=== PATIENT | male | born 1960 | race Caucasian/White ===

== ENCOUNTER 2023-04-21 07:30 | Outpatient (CLI) | payer OTHER ==
[2023-04-21 14:42] LABS: EOSINOPHILS # (AUTO) 0.1 10^3/uL (0.0-0.7); EOSINOPHILS % (AUTO) 3.1 %; HCT - HEMATOCRIT 45.7 % (42.0-52.0); HGB - HEMOGLOBIN 15.7 g/dL (14.0-18.0); LYMPHOCYTES # (AUTO) 1.2 10^3/uL (1.5-3.5); LYMPHOCYTES % (AUTO) 30.2 %; MEAN CORPUSCULAR HEMOGLOBIN 33.2 pg (27.0-31.0); MEAN CORPUSCULAR HGB CONC 34.4 g/dL (32.0-36.0); MEAN CORPUSCULAR VOLUME 96.6 fL (80.0-94.0); MEAN PLATELET VOLUME 9.7 fL (7.4-11.4); MONOCYTES # (AUTO) 0.4 10^3/uL (0.0-1.0); MONOCYTES % (AUTO) 11.1 %; NEUTROPHILS # (AUTO) 2.1 10^3/uL (1.5-6.6); NEUTROPHILS % (AUTO) 53.8 %; PLT - PLATELET COUNT 192 10^3/uL (130-450); RED BLOOD COUNT 4.73 10^6/uL (4.70-6.10); RED CELL DISTRIBUTION WIDTH 13.2 % (12.0-15.0); WHITE BLOOD COUNT 3.9 x10^3/uL (4.8-10.8)
[2023-04-21 15:22] LABS: ALBUMIN 4.6 g/dL (3.2-5.5); ALBUMIN/GLOBULIN RATIO 2.2 (1.0-2.2); ALKALINE PHOSPHATASE 53 IU/L (42-121); ALT ALANINE AMINOTRANSFERASE 30 IU/L (10-60); AST ASPARTATE AMINOTRANSFERASE 23 IU/L (10-42); BILIRUBIN,TOTAL 1.1 mg/dL (0.2-1.0); BUN - BLOOD UREA NITROGEN 13 mg/dL (6-20); CALCIUM 9.4 mg/dL (8.5-10.3); CARBON DIOXIDE - CO2 26 mmol/L (21-32); CHLORIDE 108 mmol/L (101-111); CHOL/HDL RATIO 3.1 (<5.0); CHOLESTEROL 120 mg/dL; CREATININE 0.8 mg/dL (0.6-1.3); GFR - MDRD 99 (>89); GLUCOSE 132 mg/dL (74-104); HDL CHOLESTEROL 39 mg/dL; LDL CHOLESTEROL,CALCULATED 61 mg/dL; LDL CHOLESTEROL,DIRECT 72 mg/dL (75-193); LDL/HDL RATIO 1.6 (<3.6); POTASSIUM 4.2 mmol/L (3.5-4.5); SODIUM 139 mmol/L (135-145); TOTAL PROTEIN 6.7 g/dL (6.4-8.9); TRIGLYCERIDES 99 mg/dL (48-352); VLDL CHOLESTEROL 20 mg/dL
[2023-04-21 15:45] LABS: RHEUMATOID FACTOR NEGATIVE (Negative)
[2023-04-21 20:55] LABS: ESTIMATED AVERAGE GLUCOSE 100 mg/dL (70-100); HEMOGLOBIN A1c% 5.1 % (4.27-6.07)
[2023-04-22 04:09] LABS: HCV AB Non Reactive (Non Reactive); HIV SCREEN 4TH GENERATION Non Reactive (Non Reactive); VITAMIN D 25-HYDROXY 45.9 ng/mL (30.0-100.0)
== END 2023-04-21 07:31 | disposition home or self-care (01) ==
LOC: LAB.S 07:30
PROVIDERS: ATTEND Internal Medicine
DX: Z00.00 Encounter for general adult medical examination without abnormal findings (principal); M25.549 Pain in joints of unspecified hand; I10 Essential (primary) hypertension; E78.5 Hyperlipidemia, unspecified; Z13.21 Encounter for screening for nutritional disorder; Z11.59 Encounter for screening for other viral diseases; Z11.4 Encounter for screening for human immunodeficiency virus [HIV]
CPT/HCPCS: 36415; 80053; 80061; 82306; 83036; 83721; 84443; 85025; 86200; 86430; 86803; 87389

== ENCOUNTER 2023-10-21 18:04 | Emergency (ER) | payer OTHER ==
[2023-10-21] MEDS: SODIUM CHLORIDE 0.9% 1,000 ML IV ONE (18:26)
[2023-10-21 18:38] LABS: BASOPHILS % (AUTO) 0.2 %; EOSINOPHILS # (AUTO) 0.1 10^3/uL (0.0-0.7); EOSINOPHILS % (AUTO) 0.8 %; HCT - HEMATOCRIT 49.3 % (42.0-52.0); HGB - HEMOGLOBIN 16.7 g/dL (14.0-18.0); LYMPHOCYTES # (AUTO) 0.5 10^3/uL (1.5-3.5); LYMPHOCYTES % (AUTO) 4.3 %; MEAN CORPUSCULAR HEMOGLOBIN 31.5 pg (27.0-31.0); MEAN CORPUSCULAR HGB CONC 33.9 g/dL (32.0-36.0); MEAN PLATELET VOLUME 8.8 fL (7.4-11.4); MONOCYTES % (AUTO) 7.9 %; NEUTROPHILS # (AUTO) 10.4 10^3/uL (1.5-6.6); NEUTROPHILS % (AUTO) 86.1 %; PLT - PLATELET COUNT 209 10^3/uL (130-450); RED CELL DISTRIBUTION WIDTH 13.1 % (12.0-15.0)
--- NOTE | 2023-10-21 18:39 | ED Physician Documentation ---
PD HPI HEENT - Stated complaint Stated Complaint: POST OP FEVER/NAUSEA - Chief complaint Chief Complaint: Fever - Additional information Additional information: 63-year-old male recently had bilateral inguinal hernia repair completed on October 14 with José Miguel Bain. According to the patient's surgeon reported that there was a lot of bladder involvement with bilateral inguinal hernia. After surgery patient is having a hard time voiding so a Griffin catheter was placed he had that removed yesterday he has been able to void adequately since but he started experiencing nausea today with fevers up to 103 F at home. He denies any abdominal pain no difficulty urinating but is urinating quite frequently. PD PAST MEDICAL HISTORY - Past Medical History Past Medical History: Yes Cardiovascular: Hypertension, High cholesterol Neuro: None Endocrine/Autoimmune: None GI: None : None HEENT: None Psych: None Musculoskeletal: None Derm: None - Past Surgical History Past Surgical History: Yes General: Colonoscopy - Present Medications Home Medications: Ambulatory Orders Medication Instructions Recorded Confirmed Benazepril HCl 20 mg PO DAILY 10/21/23 10/21/23 Cefuroxime Axetil [Cefuroxime] 500 mg PO BID 10 Days #20 tablet 10/21/23 Simvastatin [Zocor] 20 mg PO DAILY 10/21/23 10/21/23 Tamsulosin [Flomax] 0.4 mg PO DAILY 10/21/23 10/21/23 amLODIPine [Norvasc] 5 mg PO ONCE 10/21/23 10/21/23 - Allergies Allergies/Adverse Reactions: Allergies Allergy/AdvReac Type Severity Reaction Status Date / Time No Known Drug Allergies Allergy Verified 10/21/23 18:17 - Social History Does the pt smoke?: No Smoking Status: Never smoker Does the pt drink ETOH?: No Does the pt have substance abuse?: No - Immunizations Immunizations are current?: Yes PD ED PE NORMAL - Vitals Vital signs reviewed: Yes - General General: Alert and oriented X 3, No acute distress, Well developed/nourished - HEENT HEENT: Atraumatic - Cardiac Cardiac: RRR, No murmur, No gallop, Strong equal pulses, Other (tachy) - Respiratory Respiratory: No respiratory distress, Clear bilaterally - Abdomen Abdomen: Normal bowel sounds, Soft, Non tender, Non distended, No organomegaly, Other (3 well healing laproscopic incisions clean dry and intact, no erythema, no purulent drainage) - Back Back: No CVA TTP - Derm Derm: Normal color, Warm and dry, No rash - Extremities Extremities: No edema Results - Vitals Vitals: Vital Signs - 24 hr 10/21/23 10/21/23 10/21/23 18:11 18:46 18:54 Temperature 38.4 C H 38.4 C H Heart Rate 130 H 107 H Respiratory 20 20 Rate Blood Pressure 156/101 H 150/83 H O2 Saturation 93 95 10/21/23 10/21/23 10/21/23 19:24 19:55 20:00 Temperature 37.4 C Heart Rate 111 H 108 H Respiratory 25 H 21 Rate Blood Pressure 123/88 H 121/70 O2 Saturation 93 94 10/21/23 10/21/23 10/21/23 20:30 21:00 21:30 Temperature Heart Rate 107 H 104 H 101 H Respiratory 20 20 20 Rate Blood Pressure 116/76 112/73 O2 Saturation 92 93 93 10/21/23 22:00 Temperature Heart Rate 97 Respiratory 20 Rate Blood Pressure 118/92 H O2 Saturation 93 Oxygen O2 Source Room air - Labs Labs: Microbiology 10/21/23 19:47 Urine Culture - Preliminary Urine,Clean Catch Laboratory Tests 10/21/23 10/21/23 10/21/23 18:29 18:29 18:29 WBC 12.0 H RBC 5.30 Hgb 16.7 Hct 49.3 MCV 93.0 MCH 31.5 H MCHC 33.9 RDW 13.1 Plt Count 209 MPV 8.8 Neut # (Auto) 10.4 H Lymph # (Auto) 0.5 L [place] # (Auto) 1.0 Eos # (Auto) 0.1 Baso # (Auto) 0.0 Absolute Nucleated RBC 0.00 Nucleated RBC % 0.0 Sodium 138 Potassium 4.3 Chloride 105 Carbon Dioxide 24 Anion Gap 9.0 BUN 14 Creatinine 0.9 Estimated GFR (MDRD) 86 L Glucose 124 H Lactic Acid 1.6 Calcium 9.9 Magnesium 1.6 L Total Bilirubin 1.4 H AST 24 ALT 39 Alkaline Phosphatase 58 Total Protein 7.4 Albumin 4.8 Globulin 2.6 Albumin/Globulin Ratio 1.8 Lipase 14 Urine Color Urine Clarity Urine pH Ur Specific [place] Urine Protein Urine Glucose (UA) Urine Ketones Urine Occult Blood Urine Nitrite Urine Bilirubin Urine Urobilinogen Ur Leukocyte Esterase Urine RBC Urine WBC Ur Squamous Epith Cells Urine Bacteria Ur Microscopic Review Urine Culture Comments Nasal Adenovirus (PCR) Nasal B. parapertussis DNA (PCR) Nasal Coronavir 229E PCR Nasal Coronavir HKU1 PCR Nasal Coronavir NL63 PCR Nasal Coronavir OC43 PCR Nasal Enterovir/Rhinovir PCR Nasal Influenza B PCR Nasal Influenza A PCR Nasal Parainfluen 1 PCR Nasal Parainfluen 2 PCR Nasal Parainfluen 3 PCR Nasal Parainfluen 4 PCR Nasal RSV (PCR) Nasal B.pertussis DNA PCR Nasal C.pneumoniae (PCR) Ji Human Metapneumo PCR Nasal M.pneumoniae (PCR) Nasal SARS-CoV-2 (PCR) 10/21/23 10/21/23 18:35 19:47 WBC RBC Hgb Hct MCV MCH MCHC RDW Plt Count MPV Neut # (Auto) Lymph # (Auto) [place] # (Auto) Eos # (Auto) Baso # (Auto) Absolute Nucleated RBC Nucleated RBC % Sodium Potassium Chloride Carbon Dioxide Anion Gap BUN Creatinine Estimated GFR (MDRD) Glucose Lactic Acid Calcium Magnesium Total Bilirubin AST ALT Alkaline Phosphatase Total Protein Albumin Globulin Albumin/Globulin Ratio Lipase Urine Color YELLOW Urine Clarity CLEAR Urine pH 6.0 Ur Specific [place] <=1.005 Urine Protein NEGATIVE Urine Glucose (UA) NEGATIVE Urine Ketones NEGATIVE Urine Occult Blood SMALL H Urine Nitrite NEGATIVE Urine Bilirubin NEGATIVE Urine Urobilinogen 0.2 (NORMAL) Ur Leukocyte Esterase TRACE H Urine RBC None Seen Urine WBC >25 H Ur Squamous Epith Cells RARE Squamous Urine Bacteria Moderate H Ur Microscopic Review INDICATED Urine Culture Comments INDICATED Nasal Adenovirus (PCR) NOT DETECTED Nasal B. parapertussis DNA (PCR) NOT DETECTED Nasal Coronavir 229E PCR NOT DETECTED Nasal Coronavir HKU1 PCR NOT DETECTED Nasal Coronavir NL63 PCR NOT DETECTED Nasal Coronavir OC43 PCR NOT DETECTED Nasal Enterovir/Rhinovir PCR NOT DETECTED Nasal Influenza B PCR NOT DETECTED Nasal Influenza A PCR NOT DETECTED Nasal Parainfluen 1 PCR NOT DETECTED Nasal Parainfluen 2 PCR NOT DETECTED Nasal Parainfluen 3 PCR NOT DETECTED Nasal Parainfluen 4 PCR NOT DETECTED Nasal RSV (PCR) NOT DETECTED Nasal B.pertussis DNA PCR NOT DETECTED Nasal C.pneumoniae (PCR) NOT DETECTED Ji Human Metapneumo PCR NOT DETECTED Nasal M.pneumoniae (PCR) NOT DETECTED Nasal SARS-CoV-2 (PCR) NOT DETECTED PD Medical Decision Making - ED course ED course: 63-year-old male presents emergency department for concerns of postop fever. Patient had Griffin removed yesterday he has been voiding frequently but he denies any pain or dysuria with voiding. Patient denies no abdominal pain no CVA tenderness. PVR was 0 so patient is not retaining after having his Griffin catheter removed. He does have slight leukocytosis, WBC 12.0 with no elevated lactate. GFR is 86 normal BUN normal creatinine. Urinalysis reveals trace leukocytosis with moderate bacteria urine is sent for further cultures. Respiratory panel is negative. He was given 1 L of IV fluid and he was given a one-time dose of IV Rocephin. At this time patient is safe for discharge no further emergent workup indicated at this time. He responded well to the IV fluids as well as the Tylenol and ibuprofen for his fever he was started on antibiotics and a prescription of cefuroxime was sent to his preferred pharmacy on file and he was given very strict return precautions. Patient was also told to reach out to his surgeon to let him know about today's ER visit to see if there is anything else that she wants to do for further evaluation of his possible postop complications. All questions answered safe for discharge. Departure - Departure Disposition: Home, Self Care Clinical Impression: UTI (urinary tract infection) Qualifiers: Urinary tract infection type: acute cystitis Hematuria presence: without hematuria Qualified Code(s): N30.00 - Acute cystitis without hematuria Post op infection Qualifiers: Encounter type: initial encounter Postoperative infection type: unspecified type Qualified Code(s): T81.40XA - Infection following a procedure, unspecified, initial encounter Instructions: ED UTI Cystitis Male Prescriptions: Cefuroxime Axetil [Cefuroxime] 500 mg PO BID 10 Days #20 tablet Comments: As we discussed you have a urinary tract infection. We have given you a one- time dose of IV Rocephin here in the emergency department and I am starting you on an oral antibiotic called cefuroxime. [facility] you will take this twice a day for the next 10 days. Please reach out to your surgeon to let her know about your ER visit today to see if there is any additional antibiotics she wants you on. As we discussed if you are getting any worse or if after 2 days of antibiotics you are still developing fevers and chills please come back to the emergency department for further evaluation. We have sent your urine and your blood for further cultures we will call you in 2 to 3 days if you need to change any antibiotics or if you need to come back to the emergency department. Forms: PCP List Discharge Date/Time: 10/21/23 22:19
[2023-10-21 18:41] LABS: MAGNESIUM 1.6 mg/dL (1.7-2.3)
[2023-10-21 18:47] LABS: ALBUMIN 4.8 g/dL (3.2-5.5); ALBUMIN/GLOBULIN RATIO 1.8 (1.0-2.2); BILIRUBIN,TOTAL 1.4 mg/dL (0.2-1.0); CALCIUM 9.9 mg/dL (8.5-10.3); CREATININE 0.9 mg/dL (0.6-1.3); POTASSIUM 4.3 mmol/L (3.5-4.5); TOTAL PROTEIN 7.4 g/dL (6.4-8.9)
[2023-10-21] MEDS: IBUPROFEN 600 MG TABLET PO STA (18:54)
[2023-10-21 19:32] LABS: B. PARAPERTUSSIS- RESP PCR PAN NOT DETECTED; B. PERTUSSIS- RESP PCR PANEL NOT DETECTED; C. PNEUMONIAE- RESP PCR PANEL NOT DETECTED; CORONAVIRUS 229E-RESP PCR NOT DETECTED; CORONAVIRUS HKU1-RESP PCR NOT DETECTED; CORONAVIRUS NL63-RESP PCR NOT DETECTED; CORONAVIRUS OC43-RESP PCR NOT DETECTED; HUMAN METAPNEUMOVIRUS NOT DETECTED; INFLUENZA A- RESP PCR PANEL NOT DETECTED; INFLUENZA B - RESP PCR PANEL NOT DETECTED; M. PNEUMONIAE- RESP PCR PANEL NOT DETECTED; PARAINFLUENZA VIRUS 1 NOT DETECTED; PARAINFLUENZA VIRUS 2 NOT DETECTED; PARAINFLUENZA VIRUS 3 NOT DETECTED; PARAINFLUENZA VIRUS 4 NOT DETECTED; RHINOVIRUS/ENTEROVIRUS NOT DETECTED; RSV- RESP PCR PANEL NOT DETECTED; SARS-CoV-2 -RESP PCR PANEL NOT DETECTED
[2023-10-21] MEDS: ONDANSETRON 4 MG/2 ML VIAL IVP STA (19:52)
[2023-10-21] MEDS: cefTRIAXone 2 GM VIAL IVP STA (19:54)
[2023-10-21 20:10] LABS: BILIRUBIN,URINE NEGATIVE (NEGATIVE); GLUCOSE, URINE (UA) NEGATIVE (NEGATIVE); KETONES,URINE (UA) NEGATIVE (NEGATIVE); LEUKOCYTE ESTERASE, URINE TRACE (NEGATIVE); NITRITE,URINE NEGATIVE (NEGATIVE); OCCULT BLOOD,URINE SMALL (NEGATIVE); PROTEIN,URINE NEGATIVE (NEGATIVE); UROBILINOGEN,URINE 0.2 (NORMAL) E.U./dL (NORMAL)
[2023-10-21 20:17] LABS: CLARITY,URINE CLEAR (CLEAR)
[2023-10-21 20:24] LABS: BACTERIA,URINE Moderate /HPF (None Seen); RBC,URINE None Seen /HPF (0-5); SQUAMOUS EPITHELIAL CELL,UR RARE Squamous (<= Few); WBC,URINE >25 /HPF (0-3)
[2023-10-21 21:31] VITALS: O2SAT 93
[2023-10-21] MEDS: ACETAMINOPHEN 325 MG TABLET PO STA (21:36)
[2023-10-21 22:17] VITALS: BP 118/92
== END 2023-10-21 22:19 | disposition home or self-care (01) ==
LOC: ED 18:04
DX: T81.40XA Infection following a procedure, unspecified, initial encounter (principal); N30.00 Acute cystitis without hematuria; I10 Essential (primary) hypertension; Z11.52 Encounter for screening for COVID-19
CPT/HCPCS: 36415; 80053; 81001; 83605; 83690; 83735; 85025; 87040; 87086; 87633; 96374; 96375; 99284; A9270; 81003; 87077; 87181